=== PATIENT | female | born 1945 | race Caucasian/White ===

== ENCOUNTER 2018-07-09 12:13 | Inpatient (IN) | payer MEDICARE ==
[~2018-07-09] VITALS: Ht 154.9 cm; Wt 47.6 kg
--- NOTE | ~2018-07-09 | PN ---
PATIENT:JESSE CAMARA MEDICAL RECORD: [id number] LOCATION:[facility] ADMISSION DATE: 07/09/18 PROGRESS NOTE DATE OF SERVICE: 07/17/2018 SUBJECTIVE: The patient's case was discussed with staff. She has no new complaint. OBJECTIVE: The patient had a very difficult night. Apparently, she was actively hallucinating. She was seen her dog being dangled out of a car window in a very threatening manner. She was tearful about this and could not be consoled that the incident was not real. She has a recollection of this and tells me that someone was hanging her dog out of a car window. ASSESSMENT: No change in diagnoses. PLAN: Current medicines have been reviewed and will be maintained. Long-term prognosis is guarded. TRANSINT:[id number] Voice Confirmation ID: [id number] DOCUMENT ID: [id number] LJ BANUELOS MD at 0908 CC: [id number] DICTATION DATE: 07/17/18 1131 GEOTHERMAL TECHNICIAN: 07/17/18 1231 ADM IN [facility] [address] [place] [id number]
--- NOTE | ~2018-07-09 | PN ---
PATIENT:JESSE CAMARA MEDICAL RECORD: [id number] LOCATION:[facility] ADMISSION DATE: 07/09/18 PROGRESS NOTE DATE OF SERVICE: 07/24/2018 SUBJECTIVE: The patient's case was discussed with staff. She has no new complaint. OBJECTIVE: The patient denies intent to harm herself or others. She generally tolerates her medicines well. ASSESSMENT: No change in diagnoses. PLAN: The patient is not wanting to take the Aricept or perphenazine, although she would not explain why. She continues to insist her son is stealing from her and that she is only going to consider going home to her house in [place]. Her long-term prognosis is guarded. TRANSINT:[id number] Voice Confirmation ID: [id number] DOCUMENT ID: [id number] LJ BANUELOS MD at 1018 CC: [id number] DICTATION DATE: 07/24/18 1255 DETECTIVE PRECINCT: 07/24/18 1444 ADM IN [place] [id number] [place] [address]
--- NOTE | ~2018-07-09 | PN ---
PATIENT:SHWETA CAMARA MEDICAL RECORD: [id number] LOCATION:[facility] ADMISSION DATE: 07/09/18 PROGRESS NOTE DATE OF SERVICE: 07/25/2018 SUBJECTIVE: The patient's case was discussed with staff. She has no new complaint. OBJECTIVE: The patient is severely impaired cognitively, but has not been aggressive. ASSESSMENT: No change in diagnoses. PLAN: The patient's son lives in [place], [place], or [place], I am not sure which [place] the border he [place], but he is going to take her back to [place] either Sunday or Sunday if she is stable enough to travel. At this point, I think it is likely that will be possible. He is going to have her assessed for a [place] there. This is certainly appropriate as she is completely incapable of caring for her . Apparently, the from a previous marriage has a daughter that is going to help him, although I am not sure how much their plans are going to overlap. Shweta is fine with going with her son or at least that is what she says today. TRANSINT:[id number] Voice Confirmation ID: [id number] DOCUMENT ID: [id number] LJ BANUELOS MD at 1239 CC: [id number] DICTATION DATE: 07/25/18 1430 AIRCRAFT STRUCTURAL REPAIR MECHANIC: 07/25/181958 ADM IN [facility] [address] [place] [address]
--- NOTE | ~2018-07-09 | PN ---
PATIENT:JESSE CAMARA MEDICAL RECORD: [id number] LOCATION:[facility] ADMISSION DATE: 07/09/18 PROGRESS NOTE DATE OF SERVICE: 07/13/2018 SUBJECTIVE: The patient's case was discussed with staff. She has no new complaint. OBJECTIVE: The patient is significantly more confused today. She is insisting she has to get to [facility] today to have surgery this afternoon. When it is explained to her that this is a Sunday and that they would not be operating on her on a Sunday afternoon, she becomes quite angry and insists that we are all wrong and that we call the hospital to make arrangements for her to have this surgery. ASSESSMENT: No change in diagnoses. PLAN: Current medicines and therapies have been reviewed. Her long-term prognosis is guarded. TRANSINT:[id number] Voice Confirmation ID: [id number] DOCUMENT ID: [id number] LJ BANUELOS MD at 1050 CC: [id number] DICTATION DATE: 07/13/18 1328 POCKET CLOSER: 07/13/18 1354 ADM IN [facility] [address] [place] [address]
--- NOTE | ~2018-07-09 | PN ---
PATIENT:JESSE CAMARA MEDICAL RECORD: [id number] LOCATION:[facility] ADMISSION DATE: 07/09/18 PROGRESS NOTE DATE OF SERVICE: 07/12/2018 SUBJECTIVE: The patient's case was discussed with staff. She has no new complaint. OBJECTIVE: The patient is partially oriented. She is calm and cooperative and no longer is having hallucinations. More accurately, she is not having hallucinations that she is reporting without being asked about it. When I do ask her about the situation that brought her here, she is still maintaining to those delusions, but at least at this point, she is not going out of her way to bring them up and talk about them. I view that as an improvement. Current medicines will be maintained. Supportive and educational interventions were made. TRANSINT:[id number] Voice Confirmation ID: [id number] DOCUMENT ID: [id number] LJ BANUELOS MD at 1309 CC: [id number] DICTATION DATE: 07/12/18 1339 SENIOR APPLICATION SOFTWARE ENGINEER: 07/12/18 1559 ADM IN [place] [id number] [place] [id number]
--- NOTE | ~2018-07-09 | PN ---
PATIENT:JESSE CAMARA MEDICAL RECORD: [id number] LOCATION:[facility] ADMISSION DATE: 07/09/18 PROGRESS NOTE DATE OF SERVICE: 07/14/2018 SUBJECTIVE: The patient's case was discussed with staff. She has no new complaint. OBJECTIVE: The patient did not mention her son-in-law stealing from her today. I did not ask her about it, but I consider the fact that she did not bring it up to be a sign of improvement. She has been so focused on these delusions. ASSESSMENT: No change in diagnoses. PLAN: Current medicines and therapies have been reviewed, both will be maintained. TRANSINT:[id number] Voice Confirmation ID: [id number] DOCUMENT ID: [id number] LJ BANUELOS MD at 1551 CC: [id number] DICTATION DATE: 07/14/18 1202 LAND LEVELER: 07/14/18 1225 ADM IN [place] [id number] [place] [address]
--- NOTE | ~2018-07-09 | PN ---
PATIENT:JESSE CAMARA MEDICAL RECORD: [id number] LOCATION:[facility] ADMISSION DATE: 07/09/18 PROGRESS NOTE DATE OF SERVICE: 07/22/2018 SUBJECTIVE: The patient's case was discussed with staff. She has no new complaint. OBJECTIVE: The patient is in good behavioral control with limited insight about her condition. She generally tolerates her medicines well. ASSESSMENT: No change in diagnoses. PLAN: Current medicines and therapies have been reviewed, both will be maintained. Her long-term prognosis is guarded. TRANSINT:[id number] Voice Confirmation ID: [id number] DOCUMENT ID: [id number] LJ BANUELOS MD at 1147 CC: [id number] DICTATION DATE: 07/22/18 1639 SENIOR LINUX UNIX ENGINEER: 07/23/18 0035 ADM IN [facility] [address] [place] [address]
--- NOTE | ~2018-07-09 | PN ---
PATIENT:JESSE CAMARA MEDICAL RECORD: [id number] LOCATION:[facility] ADMISSION DATE: 07/09/18 PROGRESS NOTE DATE OF SERVICE: 07/23/2018 SUBJECTIVE: The patient's case was discussed with staff. She has no new complaint. OBJECTIVE: The patient denies intent to harm herself or others. She tolerates her medicines well. She has pretty limited insight. ASSESSMENT: No change in diagnoses. PLAN: Current medicines and therapies have been reviewed and will be maintained. Long-term prognosis is guarded. TRANSINT:[id number] Voice Confirmation ID: [id number] DOCUMENT ID: [id number] LJ BANUELOS MD at 1142 CC: [id number] DICTATION DATE: 07/23/18 1214 ELECTRIC WHEELCHAIR REPAIRER: 07/23/18 1221 ADM IN [facility] [address] [place] [address]
--- NOTE | ~2018-07-09 | PN ---
PATIENT:JESSE CAMARA MEDICAL RECORD: [id number] LOCATION:[facility] ADMISSION DATE: 07/09/18 PROGRESS NOTE DATE OF SERVICE: 07/26/2018 SUBJECTIVE: The patient's case was discussed with staff. She has no new complaint. OBJECTIVE: The patient is quite confused. She is only intermittently taking her medicines. She was very upset last night. She had the delusion that her had and had some sort of elaborate story about how he had been killed, none of which was true and she could not be consoled. Today, she has forgotten about it and when asked how her is doing she tells me he is just fine and he was here a little while ago. ASSESSMENT: No change in diagnoses. PLAN: Current medicines have been reviewed and will be maintained. Long-term prognosis is guarded. TRANSINT:[id number] Voice Confirmation ID: [id number] DOCUMENT ID: [id number] LJ BANUELOS MD at 1101 CC: [id number] DICTATION DATE: 07/26/18 1518 FLYING SQUAD SALESPERSON: 07/27/18 0015 ADM IN [facility] [address] [place] [address]
--- NOTE | ~2018-07-09 | PN ---
PATIENT:JESSE CAMARA MEDICAL RECORD: [id number] LOCATION:[facility] ADMISSION DATE: 07/09/18 PROGRESS NOTE DATE OF SERVICE: 07/15/2018 SUBJECTIVE: The patient's case was discussed with staff. She has no new complaint. OBJECTIVE: The patient is in good behavioral control with very limited insight about her condition. She is generally tolerating her medicines well. She remains quite confused. ASSESSMENT: No change in diagnoses. PLAN: Current medicines have been reviewed and will be maintained. Long-term prognosis is guarded. TRANSINT:[id number] Voice Confirmation ID: [id number] DOCUMENT ID: [id number] LJ BANUELOS MD at 0932 CC: [id number] DICTATION DATE: 07/15/18 1632 SERVICE DELIVERY MANAGEMENT CONSULTANT: 07/15/18 1725 ADM IN [facility] [address] [place] [address]
--- NOTE | ~2018-07-09 | PN ---
PATIENT:JESSE CAMARA MEDICAL RECORD: [id number] LOCATION:[facility] ADMISSION DATE: 07/09/18 PROGRESS NOTE DATE OF SERVICE: 07/19/2018 SUBJECTIVE: The patient's case was discussed with staff. She has no new complaint. OBJECTIVE: The patient denies intent to harm herself or others. She tolerates her medicines well. She has very limited insight about her condition. ASSESSMENT: No change in diagnoses. PLAN: Brief supportive and educational interventions were made. The patient will be maintained on her current medications. I anticipate she can be transitioned out of the hospital soon as she is no longer having hallucinatory experiences, but there is going to be a significant issue related to placement. She actually still believes her son in law is stealing from her, it is just that she does not bring it up unless specifically asked about that event and even then she is not nearly as angry or agitated about the situation. TRANSINT:[id number] Voice Confirmation ID: [id number] DOCUMENT ID: [id number] LJ BANUELOS MD at 1204 CC: [id number] DICTATION DATE: 07/19/18 190 UPPER CUTTER OUT: 07/20/18 0208 ADM IN [place] [address] [place] [address]
--- NOTE | ~2018-07-09 | DS ---
PATIENT:JESSE CAMARA :43 MEDICAL RECORD: [id number] DISCHARGE SUMMARY ADMISSION DATE: 07/09/18 DISCHARGE DATE: 07/29/18 IDENTIFYING DATA: The patient is 72 years old and she was admitted to the hospital on a voluntary basis because of psychotic symptoms. The patient has had about a 2-week history of hallucinations. They are quite bizarre. She believes that her son-in-law has gone to the bank in disguise and stolen money from her account. She also thinks that the son-in-law has been hiding in her attic and she has actually gotten out a shotgun to try to protect herself. The delusions are complex and they relate other people besides the son-in-law. Some of them have yazdanism nature to them. She becomes angry when questioned logically about inconsistencies. She also said that she was going to kill herself because people do not believe her. She cannot give motivations for her son in law's behavior or explanations about any of the other delusions. She denies vegetative depressive symptoms. She denies thoughts of wanting to harm herself or others and she denies substance abuse. She has no history of mental illness. HOSPITAL COURSE: The patient was admitted to the hospital and evaluated from both a medical, psychological, and social standpoint. She was treated with both mood-stabilizing and memory-enhancing medications and showed some improvement. She was given antipsychotic medications and had a dramatic improvement in her delusions and hallucinations. It was clear that the patient had a progressive dementia and given the fact that she also had such complex delusions and known history of mental illness, it was thought that the probable source of her dementia was a Lewy body dementia. DISCHARGE DIAGNOSES: AXIS I: Lewy body dementia. AXIS II: None. AXIS III: Hypothyroidism and hypercholesterolemia. AXIS IV: Moderate stressors. AXIS V: Global Assessment Of Functioning is 35. PLAN: At the time of discharge, the patient was in good behavioral control and did not represent an acute risk to herself or caregivers. She is to have followup with her primary care physician. Unfortunately, her long-term prognosis is guarded to poor given the progressive degenerative nature of her condition. TRANSINT:[id number] Voice Confirmation ID: [id number] DOCUMENT ID: [id number] LJ BANUELOS MD at 1443 CC: [id number] DICTATION DATE: 07/29/18 1601 CIVIL ENGINEER LAND DEVELOPMENT: 07/30/18 0139 DIS IN 07/29/[address] [facility] [address] [place] [address]
--- NOTE | ~2018-07-09 | PN ---
PATIENT:JESSE CAMARA MEDICAL RECORD: [id number] LOCATION:[facility] ADMISSION DATE: 07/09/18 PROGRESS NOTE DATE OF SERVICE: 07/16/2018 SUBJECTIVE: The patient's case was discussed with staff. She has no new complaint. OBJECTIVE: The patient is in good behavioral control with limited insight about her condition. She generally tolerates her medicines well. ASSESSMENT: No change in diagnoses. PLAN: Current medicines and therapies have been reviewed, both will be maintained. Long-term prognosis is guarded. TRANSINT:[id number] Voice Confirmation ID: [id number] DOCUMENT ID: [id number] LJ BANUELOS MD at 1058 CC: [id number] DICTATION DATE: 07/16/18 1441 HOLISTIC NUTRITIONIST: 07/16/18 1714 ADM IN [place] [id number] [place] [address]
--- NOTE | ~2018-07-09 | PN ---
PATIENT:JESSE CAMARA MEDICAL RECORD: [id number] LOCATION:[facility] ADMISSION DATE: 07/09/18 PROGRESS NOTE DATE OF SERVICE: 07/21/2018 SUBJECTIVE: The patient's case was discussed with staff. She has no new complaint. OBJECTIVE: The patient is in good behavioral control with limited insight about her condition. She tolerates her medicines well. ASSESSMENT: No change in diagnoses. PLAN: Supportive and educational interventions were made. Long-term prognosis is guarded. TRANSINT:[id number] Voice Confirmation ID: [id number] DOCUMENT ID: [id number] LJ BANUELOS MD at 1541 CC: [id number] DICTATION DATE: 07/21/18 1213 SHEAR OPERATOR AUTOMATIC: 07/21/18 1720 ADM IN [place] [place] [address]
--- NOTE | ~2018-07-09 | PN ---
PATIENT:JESSE CAMARA MEDICAL RECORD: [id number] LOCATION:[facility] ADMISSION DATE: 07/09/18 PROGRESS NOTE DATE OF SERVICE: 07/11/2018 SUBJECTIVE: The patient's case was discussed with staff. She has no new complaint. OBJECTIVE: The patient is clearly impaired cognitively. She became very agitated and required p.r.n. medication for that agitation. She is continuing to insist that these very bizarre events are occurring in which people are stealing from her. ASSESSMENT: No change in diagnoses. PLAN: At this time, I am going to give the patient Trilafon to assist with her thought disorganization. She will be monitored for clinical changes associated with its use. TRANSINT:[id number] Voice Confirmation ID: [id number] DOCUMENT ID: [id number] LJ BANUELOS MD at 1327 CC: [id number] DICTATION DATE: 07/11/18 1045 ESTIMATOR LUMBER: 07/11/18 1211 ADM IN [place] [id number] [place] [address]
--- NOTE | ~2018-07-09 | PN ---
PATIENT:JESSE CAMARA MEDICAL RECORD: [id number] LOCATION:[facility] ADMISSION DATE: 07/09/18 PROGRESS NOTE DATE OF SERVICE: 07/28/2018 SUBJECTIVE: The patient's case was discussed with staff. She has no new complaint. OBJECTIVE: The patient is disorganized and delusional. She is upset and telling me that she has an appointment this afternoon with the [employer] to go over her back taxes. She also says that immediately following that she is supposed to see Dr. Vegas. She is reluctant to take most of her medications. ASSESSMENT: No change in diagnoses. PLAN: The patient will be maintained on current medicines. Her long-term prognosis is guarded. I am going to release her tomorrow. Her son is going to drive her to [place] where he has made arrangements for her to be placed in a [facility]. He does need assistance with some p.r.n. Ativan to get her there. He is going to be given a small prescription for Ativan. TRANSINT:[id number] Voice Confirmation ID: [id number] DOCUMENT ID: [id number] LJ BANUELOS MD at 1555 CC: [id number] DICTATION DATE: 07/28/18 1007 CERTIFIED PHARMACY TECHNICIAN: 07/28/18 1106 DIS IN 07/29/18 [place] [address] [place] [address]
--- NOTE | ~2018-07-09 | PSY ---
PATIENT NAME:JESSE CAMARA MEDICAL RECORD: [id number] : 43 LOCATION:[facility] ADMISSION DATE: 07/09/18 ACCOUNT: [id number] PSYCHIATRIC EVALUATION DATE OF EVALUATION: 07/10/18 IDENTIFYING DATA: The patient is 72 years old and she is admitted to the hospital on a voluntary basis. CHIEF COMPLAINT: Psychosis. HISTORY OF PRESENT ILLNESS: The patient has about a 10-day, 2-week history of hallucinations. They are quite bizarre. She believes that her son-in-law has gone to the bank in a disguise and stolen money from her account. She also thinks that he has been hiding in the attic and she has actually gotten out a shotgun to try and protect herself. Delusions go on about other sorts of things of a restoration nature and they tend to occur primarily in the afternoon or evening. They also are occurring at night. She becomes very angry when questioned about these and either explains them in a way that is clearly delusional or denies that they ever occurred. She also said she was going to kill herself last night when she was in the Emergency Room and now she is denying that that was ever said. She cannot explain why people are telling lies about her and what motivation they would have, but she is insisting that this is the case. She denies neurovegetative depressive symptoms. She denies thoughts of harming herself or others. She denies substance abuse or alcohol use. She denies any history of mental illness. PAST MEDICAL HISTORY: Significant for hypercholesterolemia and hypothyroidism. PAST PSYCHIATRIC HISTORY: Denied by the patient. She says she has never taken any psychiatric medicines, has never abused drugs or alcohol, has never seen a psychiatrist and so of course has never been hospitalized for psychiatric reasons. FAMILY HISTORY: Denied with regards to dementia or psychiatric diseases. ALLERGIES: No known drug allergies. CURRENT MEDICATIONS: Include levothyroxine and Zocor. SOCIAL HISTORY: The patient has been twice and has a son from her first marriage. She has been to her second for 43 years and he has an adult daughter from his first marriage. 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 She denies a history of legal entanglements or substance abuse. MENTAL STATUS EXAMINATION: The patient is awake, alert and oriented to person, place and time. She has mistaken about the circumstances of her admission. Her mood is euthymic. Her affect is appropriate. Thought processes are circumstantial. Memory, concentration, and abstraction abilities are mildly impaired, and she denies any active intent to harm herself or others. She is also denying overt paranoid, psychotic or delusional symptoms. ASSETS: Supportive family members. LIABILITIES: Limited insight. DIAGNOSTIC IMPRESSION: AXIS I: Lewy body dementia. AXIS II: None. AXIS III: Hypothyroidism and hypercholesterolemia. AXIS IV: Moderate stressors. AXIS V: Global assessment of functioning is 30. PLAN: At this time, the patient is admitted to the hospital secondary to bizarre psychotic symptoms that I believe are associated with a progressive dementia. She will be monitored for clinical changes associated with the memory enhancing and antipsychotic medications she is prescribed. Her long-term prognosis is guarded. TRANSINT:[id number] Voice Confirmation ID: [id number] DOCUMENT ID: [id number] LJ BANUELOS MD at 1021 CC: [id number] DICTATION DATE: 07/10/18 1202 TRANSFER OPERATOR: 07/10/18 1230 ADM IN [facility] [address] [place] [address]
--- NOTE | ~2018-07-09 | PN ---
PATIENT:JESSE CAMARA MEDICAL RECORD: [id number] LOCATION:[facility] ADMISSION DATE: 07/09/18 PROGRESS NOTE DATE OF SERVICE: 07/20/2018 SUBJECTIVE: The patient's case was discussed with staff. She has no new complaint. OBJECTIVE: The patient denies intent to harm herself or others. She generally tolerates her medicines well. ASSESSMENT: No change in diagnoses. PLAN: Brief supportive and educational interventions were made. Long-term prognosis is guarded. TRANSINT:[id number] Voice Confirmation ID: [id number] DOCUMENT ID: [id number] LJ BANUELOS MD at 1052 CC: [id number] DICTATION DATE: 07/20/18 1220 ONCOLOGY COORDINATOR: 07/20/18 1517 ADM IN [place] [place] [address]
--- NOTE | ~2018-07-09 | PN ---
PATIENT:JESSE CAMARA MEDICAL RECORD: [id number] LOCATION:[facility] ADMISSION DATE: 07/09/18 PROGRESS NOTE DATE OF SERVICE: 07/27/2018 SUBJECTIVE: The patient's case was discussed with staff. She has no new complaint. OBJECTIVE: The patient is only intermittently taking her medications. It is problematic and when I speak with her about it, she says that she is taking them, but that is not true. When questioned about is there some sort of a problem or something we can discuss, she says no, that she is taking her medicines and leaves it at that. ASSESSMENT: No change in diagnoses. PLAN: Current medicines have been reviewed and will be maintained. Long-term prognosis is guarded. TRANSINT:[id number] Voice Confirmation ID: [id number] DOCUMENT ID: [id number] LJ BANUELOS MD at 0924 CC: [id number] DICTATION DATE: 07/27/18 1139 CAMPGROUND ATTENDANT: 07/27/18 1210 ADM IN [place] [id number] [place] [address]
--- NOTE | ~2018-07-09 | PN ---
PATIENT:JESSE CAMARA MEDICAL RECORD: [id number] LOCATION:[facility] ADMISSION DATE: 07/09/18 PROGRESS NOTE DATE OF SERVICE: 07/18/2018 SUBJECTIVE: The patient's case was discussed with staff. She has no new complaint. OBJECTIVE: The patient is in good behavioral control with limited insight about her condition. She does tolerate her medicines well. ASSESSMENT: No change in diagnoses. PLAN: The patient will be continued on Trilafon at its current dose. I am going to increase the dose of her Aricept slightly. Her long-term prognosis is guarded. TRANSINT:[id number] Voice Confirmation ID: [id number] DOCUMENT ID: [id number] LJ BANUELOS MD at 1730 CC: [id number] DICTATION DATE: 07/18/18 1433 SENIOR SOFTWARE ENGINEERING MANAGER: 07/18/18 1525 ADM IN [place] [id number] [place] [id number]
[2018-07-09] MEDS ORDERED: ZOCOR10 MG PO ×2 (12:37→16:09)
[2018-07-09] MEDS ORDERED: TIROSINT25 MCG PO (12:38)
[2018-07-09 13:04] LABS: UDS - AMPHET NEGATIVE QUAL (NEGATIVE); UDS - BARB NEGATIVE QUAL (NEGATIVE); UDS - BENZO NEGATIVE QUAL (NEGATIVE); UDS - COCAINE NEGATIVE QUAL (NEGATIVE); UDS - OPIATE NEGATIVE QUAL (NEGATIVE); UDS - PCP NEGATIVE QUAL (NEGATIVE); UDS - THC NEGATIVE QUAL (NEGATIVE)
[2018-07-09 13:11] LABS: BASOPHILS 0.2 % (0-2); EOSINOPHILS 0.4 % (0-7); HEMATOCRIT 38.3 % (36.0-48.0); HEMOGLOBIN 12.9 g/dL (12-16); IMMATURE GRANULOCYTES 0.2 % (0-5); LYMPHOCYTES 14.7 % (15-50); MCH 34.2 pg (26.0-34.0); MCHC 33.7 g/dL (31.0-37.0); MCV 101.6 fL (80.0-100.0); MEAN PLATELET VOLUME 11.6 fL (7.4-10.4); MONOCYTES 6.9 % (2-11); NEUTROPHILS 77.6 % (40-80); PLATELET COUNT 277 10x3/uL (130-400); RBC 3.77 10x6/uL (4.00-5.40); RDW 13.4 % (11.5-14.5); WBC 9.1 10x3/uL (4.8-10.8)
[2018-07-09 13:19] LABS: APPEARANCE CLEAR (CLEAR); BILIRUBIN NEGATIVE (NEGATIVE); COLOR YELLOW (YELLOW); GLUCOSE NEGATIVE (NEGATIVE); KETONE MODERATE mg/dL (NEGATIVE); NITRITE NEGATIVE (NEGATIVE); PROTEIN NEGATIVE (NEGATIVE); SPECIFIC GRAVITY 1.015 (1.005-1.020); UROBILINOGEN NORMAL (NORMAL)
[2018-07-09 13:20] LABS: AMORPHOUS SEDIMENT <1+ /lpf (NONE SEEN); BACTERIA FEW /hpf (NONE SEEN); EPITHELIAL CELLS OCC /hpf (0-5); GRANULAR CAST OCC /lpf (NONE SEEN); MUCUS <1+ /lpf (NONE SEEN); RED CELLS - URINE 0-5 /hpf (0-5)
[2018-07-09 13:25] LABS: ALBUMIN 3.8 g/dL (3.4-5.0); ANION GAP 10.4 mmol/L (8-16); BILIRUBIN - TOTAL 0.33 mg/dL (0.2-1.3); CALCIUM 9.7 mg/dL (8.5-10.1); CARBON DIOXIDE 31.8 mmol/L (21.0-32.0); CREATININE - SERUM 0.8 mg/dL (0.6-1.3); POTASSIUM - SERUM 3.2 mmol/L (3.5-5.1)
[2018-07-09] MEDS ORDERED: ESTRACE1 MG PO (16:10)
[2018-07-09] MEDS ORDERED: SYNTHROID100 MCG PO (16:10)
[2018-07-09] MEDS ORDERED: PROVERA2.5 MG PO (16:11)
[2018-07-09 17:43] LABS: CHOL - HDL RATIO 2.6 ratio (2.3-4.1); LDL-HDL RATIO 1.4 ratio (1.5-3.5); THYROID STIMULATING HORMONE 2.51 uIU/mL (0.36-3.74)
[2018-07-09 20:00] VITALS: BP 134/74
[2018-07-10 03:48] VITALS: BP 140/78; BMI 19.8
[2018-07-10 08:04] VITALS: BMI 19.8
[2018-07-10 10:25] VITALS: BP 165/79
[2018-07-10 12:49] LABS: T4 THYROXINE 11.7 ug/dL (4.7-13.3); THYROID STIMULATING HORMONE 3.61 uIU/mL (0.36-3.74)
[2018-07-10 13:38] VITALS: BMI 19.8
[2018-07-10 19:41] VITALS: BP 123/69
[2018-07-11 06:14] LABS: RAPID PLASMA REAGIN Non Reactive (Non Reactive)
[2018-07-11 07:22] LABS: VITAMIN D 25 HYDROXY 52.3 ng/mL (30.0-100.0)
[2018-07-11 08:51] VITALS: BP 140/84
[2018-07-11 19:14] VITALS: BP 169/79
[2018-07-12 08:04] VITALS: BP 137/90
[2018-07-12 20:04] VITALS: BP 130/78
[2018-07-13 10:18] VITALS: BP 192/97
[2018-07-13 21:22] VITALS: BP 121/86
[2018-07-14 08:52] VITALS: BP 122/75
[2018-07-14 20:00] VITALS: BP 151/76
[2018-07-15 08:00] VITALS: BP 119/68
[2018-07-15 19:53] VITALS: BP 171/85
[2018-07-16 08:00] VITALS: BP 142/78
[2018-07-16 11:11] VITALS: Ht 154.9 cm; Wt 47.6 kg
[2018-07-16 19:53] VITALS: BP 159/72
[2018-07-17 07:30] VITALS: BP 166/84
[2018-07-17 19:47] VITALS: BP 129/62
[2018-07-18 09:54] VITALS: BP 136/80
[2018-07-18 20:06] VITALS: BP 130/76
[2018-07-19 09:12] VITALS: BP 136/70
[2018-07-19 19:40] VITALS: BP 122/64
[2018-07-20 09:30] VITALS: BP 127/74
[2018-07-21 09:37] VITALS: BP 133/73
[2018-07-21 13:14] LABS: BASOPHILS 0.2 % (0-2); EOSINOPHILS 1.8 % (0-7); HEMATOCRIT 36.5 % (36.0-48.0); HEMOGLOBIN 12.7 g/dL (12-16); IMMATURE GRANULOCYTES 0.1 % (0-5); LYMPHOCYTES 15.4 % (15-50); MCH 34.4 pg (26.0-34.0); MCHC 34.8 g/dL (31.0-37.0); MCV 98.9 fL (80.0-100.0); MEAN PLATELET VOLUME 11.6 fL (7.4-10.4); NEUTROPHILS 77.5 % (40-80); PLATELET COUNT 299 10x3/uL (130-400); RBC 3.69 10x6/uL (4.00-5.40); RDW 13.1 % (11.5-14.5); WBC 8.2 10x3/uL (4.8-10.8)
[2018-07-21 13:24] LABS: ALBUMIN 3.7 g/dL (3.4-5.0); ANION GAP 12.9 mmol/L (8-16); BILIRUBIN - TOTAL 0.48 mg/dL (0.2-1.3); CALCIUM 9.5 mg/dL (8.5-10.1); CARBON DIOXIDE 27.4 mmol/L (21.0-32.0); CREATININE - SERUM 0.8 mg/dL (0.6-1.3); POTASSIUM - SERUM 3.3 mmol/L (3.5-5.1); PROTEIN - SERUM 7.7 g/dL (6.4-8.2)
[2018-07-21 20:31] VITALS: BP 137/63
[2018-07-22 07:00] VITALS: BP 120/71
[2018-07-22 20:20] VITALS: BP 124/64
[2018-07-23 07:00] VITALS: BP 152/73
[2018-07-23 07:25] LABS: CALCIUM 8.9 mg/dL (8.5-10.1); CARBON DIOXIDE 26.5 mmol/L (21.0-32.0); CHLORIDE - SERUM 100 mmol/L (98-107); CREATININE - SERUM 0.7 mg/dL (0.6-1.3); SODIUM 135 mmol/L (136-145); UREA NITROGEN 11 mg/dL (7-18); eGFR NON AFRICAN AMERICAN 87 mL/min (90-120)
[2018-07-23 07:26] LABS: CALC OSMOLALITY 267 mosm/kg (275-300); GLUCOSE 85 mg/dL (74-106)
[2018-07-23 20:00] VITALS: BP 124/50
[2018-07-24 09:39] VITALS: BP 130/60
[2018-07-24 19:55] VITALS: BP 127/61
[2018-07-25 09:29] VITALS: BP 124/80
[2018-07-25 19:25] VITALS: BP 142/74
[2018-07-26 09:58] VITALS: BP 107/72
[2018-07-26 20:24] VITALS: BP 95/50
[2018-07-27 08:00] VITALS: BP 113/65
[2018-07-27 19:39] VITALS: BP 133/63
[2018-07-28 07:00] VITALS: BP 140/79
[2018-07-28] MEDS ORDERED: Aricept PO (10:07)
[2018-07-28] MEDS ORDERED: LISINOPRIL10 MG PO (10:08)
[2018-07-28] MEDS ORDERED: Systane 0.3-0.4% Eye EACH EYE (10:08)
[2018-07-28] MEDS ORDERED: PERPHENAZINE2 MG PO (10:08)
[2018-07-28] MEDS ORDERED: OSCAL D TABLET PO (10:08)
[2018-07-28 20:41] VITALS: BP 130/59
[2018-07-29 08:00] VITALS: BP 115/67
== END 2018-07-29 11:00 | disposition home or self-care (01) | DRG 57 ==
LOC: D.ER 12:13 → D.PSYCH 15:04
PROVIDERS: Family Medicine; Psychiatry & Neurology Psychiatry
DX: G31.83 Neurocognitive disorder with Lewy bodies (principal); F02.81 Dementia in other diseases classified elsewhere, unspecified severity, with behavioral disturbance; F22 Delusional disorders; E87.6 Hypokalemia; E03.9 Hypothyroidism, unspecified; E78.5 Hyperlipidemia, unspecified; E78.00 Pure hypercholesterolemia, unspecified; Z78.0 Asymptomatic menopausal state; M85.80 Other specified disorders of bone density and structure, unspecified site; H04.129 Dry eye syndrome of unspecified lacrimal gland